=== PATIENT | female | born 1980 | race Caucasian/White ===

== ENCOUNTER 2018-03-23 08:23 | Emergency (ER) | payer SELFPAY ==
[2018-03-23 08:58] LABS: URINE HCG POC HCG NEGATIVE (Negative)
[2018-03-23 09:00] LABS: BILIRUBIN,URINE NEGATIVE (NEG); CLARITY,URINE CLEAR; COLOR,URINE YELLOW; GLUCOSE,URINE NEGATIVE (NEG); NITRITE,URINE NEGATIVE (NEG); PROTEIN,URINE NEGATIVE (NEG-TRACE)
[2018-03-23] MEDS: ONDANSETRON PF 4 MG/2 ML VIAL. IV (09:06)
[2018-03-23] MEDS: KETOROLAC 30 MG/ML INJ. IV (09:07)
[2018-03-23] MEDS: MORPHINE SULFATE 10 MG/ML VIAL. IV ×2 (09:07→10:07)
[2018-03-23 09:08] LABS: SQUAMOUS EPITHELIAL CELL,UR MOD /LPF
[2018-03-23] MEDS: IV NORMAL SALINE 1000ML BAG 1,000 ML IV (09:08)
[2018-03-23 09:09] LABS: BACTERIA,URINE FEW /HPF (0-FEW)
[2018-03-23 09:24] LABS: ADD MAN DIFF? NO
[2018-03-23 09:25] LABS: BASO % 1 % (0-3); EOS # 0.2 x10^3/uL (0.0-0.7); EOS % 4 % (0-3); HEMATOCRIT 38.5 % (36.0-47.0); HEMOGLOBIN 13.2 g/dL (12.0-15.5); LYMPH # 1.8 x10^3/uL (1.0-4.8); LYMPH % 33 % (24-48); MEAN CORPUSCULAR HEMOGLOBIN 32 pg (25-35); MEAN CORPUSCULAR HGB CONC 34 g/dL (31-37); MEAN CORPUSCULAR VOLUME 94 fL (79-100); MONO # 0.3 x10^3/uL (0.0-1.1); MONO % 6 % (0-9); NEUT # 3.2 x10^3uL (1.8-7.7); NEUT % 58 % (31-73); PLATELET COUNT 284 x10^3/uL (140-400); RED CELL DISTRIBUTION WIDTH 14.3 % (11.5-14.5); WHITE BLOOD COUNT 5.6 x10^3/uL (4.0-11.0)
[2018-03-23 09:36] LABS: ANION GAP 6 (6-14); BLOOD UREA NITROGEN 15 mg/dL (7-20); BUN/CREATININE RATIO 21 (6-20); CALCIUM 7.8 mg/dL (8.5-10.1); CARBON DIOXIDE 27 mmol/L (21-32); CHLORIDE 104 mmol/L (98-107); CREATININE 0.7 mg/dL (0.6-1.0); GFR 94.2; GLUCOSE 81 mg/dL (70-99); POTASSIUM 4.1 mmol/L (3.5-5.1); SODIUM 137 mmol/L (136-145)
[2018-03-23 09:42] LABS: ALBUMIN 3.2 g/dL (3.4-5.0); ALK PHOS 68 U/L (46-116); ALT (SGPT) 43 U/L (14-59); AST (SGOT) 15 U/L (15-37); LIPASE 90 U/L (73-393); TOTAL BILIRUBIN 0.2 mg/dL (0.2-1.0); TOTAL PROTEIN 6.4 g/dL (6.4-8.2)
[2018-03-23] MEDS: CIPROFLOXACIN 400MG PREMIX 200 ML IV (10:07)
[2018-03-23] MEDS ORDERED: CIPROFLOXACIN 400MG PREMIX 200 ML IV (21:00)
== END 2018-03-23 11:48 | disposition home or self-care (01) ==
LOC: ER 08:23
DX: N39.0 Urinary tract infection, site not specified (principal); N20.0 Calculus of kidney; J45.909 Unspecified asthma, uncomplicated; Z88.5 Allergy status to narcotic agent; Z88.8 Allergy status to other drugs, medicaments and biological substances
CPT/HCPCS: 36415; 74176; 80053; 81001; 81025; 83690; 85025; 87086; 96361; 96365; 96366; 96375; 96376; 99285-25; J0744; J1885; J2270; J2405; J7030

== ENCOUNTER 2019-06-20 10:53 | Emergency (ER) | payer SELFPAY ==
[~2019-06-20] VITALS: Ht 157.5 cm; Wt 48.5 kg
[~2019-06-20 10:53] MED LIST: CIPR500T94 PO; HYDR-3164 PO; ONDA4TAB10 SL; OXYC1TAB15 PO; TAMS0.4C97 PO
[2019-06-20 11:37] VITALS: BP 113/61
[2019-06-20] MEDS ORDERED: oxyCODONE/APAP 5/325 1 TAB TABLET PO ONE (12:00)
--- NOTE | 2019-06-20 12:11 | RAD ---
EXAM: PA, oblique and lateral views of the right hand DATE: 06/20/2019 11:19 AM INDICATION: R hand pain after hitting banister COMPARISON: No Prior FINDINGS/ IMPRESSION: 1. Oblique fracture through the fifth metacarpal neck in mild apex dorsal angulation. 2. Moderate overlying soft tissue swelling is seen. Electronically signed by: Nick Capellan MD (06/20/2019 12:08 PM) [facility]
[2019-06-20] MEDS ORDERED: OXYC1TAB15 PO (12:21)
--- NOTE | 2019-06-20 12:22 | PHYS DOC ---
Past Medical History Past Medical History: Asthma, Kidney Stone, Other Additional Past Medical Histor: SVT,ENDOMETRIOSIS (KELLY OTERO APRN) Past Surgical History: Other Additional Past Surgical Histo: EXPLORATORY LAP FOR ENDOMETRIOSIS (KELLY OTERO APRN) Alcohol Use: None Drug Use: None (KELLY OTERO APRN) Adult General Chief Complaint Chief Complaint: HAND PROBLEM HPI HPI Patient is a 38 year old female who presents to the emergency room with complaints of right lateral hand pain and bruising after hitting her hand on a stair banister yesterday evening. Patient states she tried to stop herself from falling after tripping over her cat when she fell. She denies taking anything for the pain prior to arrival. She currently rates the pain an 8 out of 10 on the pain scale. She denies any numbness, or tingling. The pain increases with movement of her hand or palpation. (KELLY OTERO APRN) Review of Systems Review of Systems Constitutional: Denies fever or chills [] Eyes: Denies change in visual acuity, redness, or eye pain [] HENT: Denies nasal congestion or sore throat [] Respiratory: Denies cough or shortness of breath [] Cardiovascular: No additional information not addressed in HPI [] Musculoskeletal: See history of present illness Integument: Denies rash or skin lesions [] Neurologic: Denies headache, focal weakness or sensory changes [] Complete systems were reviewed and found to be within normal limits, except as documented in this note. (KELLY OTERO APRN) Current Medications Current Medications Current Medications Medications (Trade) Dose Ordered Sig/Jossie Start Time Stop Time Status Last Admin Dose Admin Oxycodone/ Acetaminophen (Percocet 5/325) 1 tab 1X ONCE 06/20/19 12:00 06/20/19 12:01 DC 06/20/19 12:04 1 TAB (CATHERINE PRESSLEY MD) Allergies Allergies Allergies Coded Allergies Type Severity Reaction Last Updated Verified cefaclor Allergy Intermediate 06/29/16 Yes gabapentin Allergy Intermediate 03/23/18 Yes tramadol Allergy Mild 03/23/18 Yes (CATHERINE PRESSLEY MD) Physical Exam Physical Exam Constitutional: Well developed, well nourished, no acute distress, non-toxic appearance. [] HENT: Normocephalic, atraumatic, bilateral external ears normal, nose normal. [] Eyes: PERRLA, EOMI, conjunctiva normal, no discharge. [] Neck: Normal range of motion, no stridor. [] Cardiovascular:Heart rate regular rhythm, no murmur [] Lungs & Thorax: Respirations even and unlabored, no retractions, no respiratory distress Skin: Warm, dry, no erythema, no rash. [] Extremities:R hand: Lateral TTP, limited ROM, No cyanosis, Neurologic: Alert and oriented X 3, no focal deficits noted. [] Psychologic: Affect normal, judgement normal, mood normal. [] (KELLY OTERO APRN) Current Patient Data Vital Signs Vital Signs Date Time Temp Pulse Resp B/P (MAP) Pulse Ox O2 Delivery O2 Flow Rate FiO2 06/20/19 12:04 14 96 Room Air 06/20/19 11:37 98.5 81 113/61 (78) 98.5 (CATHERINE PRESSLEY MD) EKG EKG [] (KELLY OTERO APRN) Radiology/Procedures Radiology/Procedures PROCEDURE: HAND RIGHT 3V EXAM: PA, oblique and lateral views of the right hand DATE: 06/20/2019 11:19 AM INDICATION: R hand pain after hitting banister COMPARISON: No Prior FINDINGS/ IMPRESSION: 1. Oblique fracture through the fifth metacarpal neck in mild apex dorsal angulation. 2. Moderate overlying soft tissue swelling is seen.[] (KELLY OTERO APRN) Course & Med Decision Making Course & Med Decision Making Pertinent Labs and Imaging studies reviewed. (See chart for details) [] (KELLY OTERO APRN) Course & Med Decision Making Staff Physician Addendum: I was working in the ER during the course of this patient's visit. I was available for consultation as needed, but I was not directly involved in the care of this patient. (CATHERINE PRESSLEY MD) Dragon Disclaimer Dragon Disclaimer This electronic medical record was generated, in whole or in part, using a voice recognition dictation system. (KELLY OTERO APRN) Departure Departure Impression: Primary Impression: Closed fracture of 5th metacarpal Disposition: HOME, SELF-CARE Condition: STABLE Referrals: NU GUZMAN MD (PCP) SYDNI WOO MD Patient Instructions: Hand Fracture, Fifth Metacarpal Additional Instructions: Fill prescription(s) and use as directed. Recommend application of ice, elevation, and rest of affected extremity. Wear the splint that was placed until follow up appointment with Dr. Woo. Follow up with Dr. Woo this week. Return to the ER if your symptoms worsen. Scripts Oxycodone/Apap 5-325 (PERCOCET 5-325 MG TABLET ) 1 Each Tablet 1 TAB PO QIDPRN PRN for PAIN MDD 4 Tablet(s) for 5 Days, #20 TAB 0 Refills Prov: KELLY OTERO APRN 06/20/19 Splinting Splinting : Location: R hand Hand-Made Type: orthoglass (ulnar gutter) Splint: Pre-Proc Neuro Vasc Exam: normal Post-Proc Neuro Vasc Exam: normal, unchanged from pre-exam (KELLY OTERO APRN) Problem Qualifiers Primary Impression: Closed fracture of 5th metacarpal Encounter type: initial encounter Metacarpal location: neck Fracture alignment: displaced Laterality: right Qualified Codes: S62.336A - Displaced fracture of neck of fifth metacarpal bone, right hand, initial encounter for closed fracture KELLY OTERO APRN Jun 20, 2019 12:22 CATHERINE PRESSLEY MD Jun 21, 2019 23:06
== END 2019-06-20 13:00 | disposition home or self-care (01) ==
LOC: ER 10:53
DX: S62.336A Displaced fracture of neck of fifth metacarpal bone, right hand, initial encounter for closed fracture (principal); J45.909 Unspecified asthma, uncomplicated; Z88.6 Allergy status to analgesic agent; Z88.8 Allergy status to other drugs, medicaments and biological substances; W01.0XXA Fall on same level from slipping, tripping and stumbling without subsequent striking against object, initial encounter; Y92.89 Other specified places as the place of occurrence of the external cause; Y93.89 Activity, other specified; Y99.8 Other external cause status
CPT/HCPCS: 29125; 73130; 99284-25